=== PATIENT | female | born 1975 | race Two or more races ===

== ENCOUNTER 2023-01-09 17:37 | Emergency (ER) | payer OTHER ==
[~2023-01-09] VITALS: Ht 165.1 cm; Wt 76.2 kg
[2023-01-09 19:45] LABS: URINE APPEARANCE Clear; URINE BILIRRUBIN Negative (NEGATIVE); URINE BLOOD Negative; URINE COLOR Yellow; URINE GLUCOSE Negative (NEGATIVE); URINE LEUKOCYTE Small; URINE NITRATE Negative; URINE PROTEIN Negative (NEGATIVE); URINE UROBILINOGEN 0.2 E.U./dl
[2023-01-09 19:48] LABS: HEMATOCRIT 40.5 % (36.0-45.00); MEAN CELL VOLUME 81.6 fL (80.00-100.00); MEAN CORPUSCULAR HEMOGLOBIN 28.2 pg (27.00-32.0); MEAN CORPUSCULAR HGB CONC 34.6 g/dl (32.0-36.0); PLATELET COUNT 264 K/uL (150-450); RED BLOOD COUNT 4.96 M/uL (4.00-6.00); RED CELL DISTRIBUTION WIDTH 13.6 % (11.5-14.5)
[2023-01-09 19:49] LABS: URINE BACTERIA 1224.7 uL (0.0-1933); URINE EPITHELIAL CELLS 54.3 uL (0.0-38.8); URINE RBC 16.8 uL (0.0-20.8); URINE WBC 29.8 uL (0.0-23.2)
[2023-01-09 20:25] LABS: ALBUMIN 3.8 gm/dL (3.4-5.0); BILIRUBIN TOTAL 0.24 mg/dL (0.3-1.2); CALCIUM 9.3 mg/dL (8.5-10.1); CREATININE SERUM 0.64 mg/dL (0.55-1.02); GFR 99.04; GLOBULINA 3.6 G/DL (2.4-3.5); POTASSIUM 4.03 mEq/L (3.5-5.1); TOTAL PROTEIN 7.4 gm/dL (6.4-8.2)
== END 2023-01-09 21:10 | disposition home or self-care (01) ==
LOC: ER 17:38
PROVIDERS: General Practice
DX: R07.81 Pleurodynia (principal)